=== PATIENT | male | born 1970 | race Caucasian/White ===

== ENCOUNTER → 2019-04-22 | Emergency (ER) | payer MEDICAID ==
[~2019-04-22] VITALS: Ht 172.7 cm; Wt 83.9 kg
[~2019-04-22] MED LIST: PHENAZOPYRIDINE HCL 200 MG TABLET ONE; PHENAZOPYRIDINE HCL 200 MG TABLET PO ONE
--- NOTE | 2019-04-22 22:15 | NUR ---
PT PRESENTED TO THE ER WITH A C/O PAIN WITH URINATION. PT STATED THAT HE WAS SEEN AT [facility] AND DX WITH KIDNEY STONES. PT WENT TO THE UROLOGIST YESTERDAY AND WAS GIVEN FLOMAX. PT IS STILL C/O PAIN.
--- NOTE | 2019-04-22 22:30 | NUR ---
DR GARCIA IS AT THE BEDSIDE.
[2019-04-22 22:57] LABS: APPEARANCE,URINE Clear (CLEAR); BILIRUBIN,URINE SMALL (NEGATIVE); BLOOD, URINE Large Ery/uL (NEGATIVE); COLOR,URINE Dark (YELLOW); KETONES,URINE 80 (NEGATIVE); LEUKOCYTE ESTERASE ,URINE Negative (NEGATIVE); NITRITE, URINE Negative (NEGATIVE); PROTEIN,URINE 100 mg/dl (NEGATIVE); UGLUCOSE Negative (NEGATIVE); UROBILINOGEN,URINE 0.2 EU/dL (0.2)
[2019-04-22 23:50] LABS: RBC,URINE 51-80 /HPF (0-2)
[2019-04-22 23:51] LABS: BACTERIA,URINE Few /HPF (None Seen); SQUAMOUS EPITHELIAL CELL,UR Rare /HPF (None Seen)
[2019-04-23 01:14] VITALS: BP 136/78
--- NOTE | 2019-04-23 01:15 | NUR ---
Patient discharged to home in stable condition. Written and verbal after care instructions given. Patient verbalizes understanding of instruction AND RX. PT AMBULATED OUT WITH A STEADY GAIT. VSS.
== END | disposition home or self-care (01) ==
LOC: ER 22:08
DX: R30.0 Dysuria (principal); F17.200 Nicotine dependence, unspecified, uncomplicated; Z87.442 Personal history of urinary calculi; Z88.0 Allergy status to penicillin; Z60.2 Problems related to living alone
CPT/HCPCS: 81000-TC; 87086-TC

== ENCOUNTER 2019-10-21 01:06 | Emergency (ER) | payer SELFPAY ==
[~2019-10-21] VITALS: Ht 170.2 cm; Wt 83.9 kg
[2019-10-21 01:30] LABS: APPEARANCE,URINE Clear (CLEAR); BILIRUBIN,URINE Negative (NEGATIVE); BLOOD, URINE Trace-intact Ery/uL (NEGATIVE); COLOR,URINE Yellow (YELLOW); KETONES,URINE Negative (NEGATIVE); LEUKOCYTE ESTERASE ,URINE Negative (NEGATIVE); NITRITE, URINE Negative (NEGATIVE); PH,URINE 6.5 (5.0-8.0); PROTEIN,URINE Negative (NEGATIVE); UGLUCOSE Negative (NEGATIVE); UROBILINOGEN,URINE 0.2 EU/dL (0.2)
--- NOTE | 2019-10-21 01:30 | NUR ---
C/C URGE TO URINATE AFTER URINATION, -DYSURIA, -BURNING. HX OF STONES AND RECENT INTERCOURSE. TO ER BED 2, URINE SENT TO LAB.
[2019-10-21 01:39] VITALS: BP 151/92
[2019-10-21 02:10] LABS: BACTERIA,URINE None seen /HPF (None Seen); RBC,URINE 0-2 /HPF (0-2); SQUAMOUS EPITHELIAL CELL,UR Few /HPF (None Seen); WBC,URINE 0-2 /HPF (0-3)
== END 2019-10-21 02:27 | disposition home or self-care (01) ==
LOC: ER 01:07
DX: R30.0 Dysuria (principal); F17.200 Nicotine dependence, unspecified, uncomplicated; Z87.440 Personal history of urinary (tract) infections; Z87.442 Personal history of urinary calculi; Z88.0 Allergy status to penicillin; Z60.2 Problems related to living alone
CPT/HCPCS: 81000-TC

== ENCOUNTER 2020-05-01 13:54 | Emergency (ER) | payer SELFPAY ==
[~2020-05-01] VITALS: Ht 172.7 cm; Wt 83.9 kg
[2020-05-01] MEDS ORDERED: IV NS 0.9% 1,000 ML BAG IV ONE (14:30)
[2020-05-01 14:42] LABS: HEMATOCRIT 53 % (39-51)
[2020-05-01 14:44] LABS: BASOPHILS % (AUTO) 0.5 % (0.0-2.0); EOSINOPHILS % (AUTO) 0.9 % (0.0-6.0); HEMOGLOBIN 18.4 g/dL (13.5-17.5); LYMPHOCYTES # (AUTO) 3.1 /CMM (0.8-4.8); MEAN CORPUSCULAR HGB CONC 35 g/dl (31.0-36.0); MEAN CORPUSCULAR VOLUME 93 fL (80-96); MONOCYTES # (AUTO) 0.6 /CMM (0.1-1.30); MONOCYTES % (AUTO) 7.1 % (2.0-12.0); NEUTROPHILS % (AUTO) 51.5 % (43.0-81.0); PLATELET COUNT (AUTO) 304 /CMM (150-450); RED BLOOD CELL COUNT(AUTO) 5.74 MIL/uL (4.5-6.0); WHITE BLOOD COUNT (AUTO) 7.8 K/uL (4.3-11.0)
[2020-05-01 14:48] LABS: CALCIUM, SERUM 9.2 mg/dL (8.5-10.1); CREATININE 1.2 mg/dL (0.6-1.3); POTASSIUM 3.5 mmol/L (3.5-5.1)
[2020-05-01 14:54] LABS: ALBUMIN 3.8 g/dL (3.4-5.0); BILIRUBIN,DIRECT 0.1 mg/dL (0.0-0.2); BILIRUBIN,TOTAL 0.6 mg/dL (0.2-1.0); TOTAL PROTEIN, SERUM 7.7 g/dL (6.4-8.2)
--- NOTE | 2020-05-01 15:47 | NUR ---
Await MD re-assessment and disposition. No acute changes. NO obvious distress. Status quo
[2020-05-01 15:53] LABS: THYROID STIMULATING HORMONE 1.02 uIU/mL (0.358-3.74)
[2020-05-01 15:55] VITALS: BP 132/88
--- NOTE | 2020-05-01 16:15 | NUR ---
IV removed. Catheter intact and site benign. Pressure and 4x4 applied to site. No bleeding noted.Patient discharged to home in stable condition. Written and verbal after care instructions given. Patient verbalizes understanding of instruction.
== END 2020-05-01 16:17 | disposition home or self-care (01) ==
LOC: ER 13:59
DX: F41.1 Generalized anxiety disorder (principal); R53.83 Other fatigue; R19.7 Diarrhea, unspecified; R51 Headache; R11.0 Nausea; Z87.442 Personal history of urinary calculi; Z88.0 Allergy status to penicillin; Z60.2 Problems related to living alone
CPT/HCPCS: 36415; 71045; 80048; 80076; 84439; 84443; 85025; 93005; 96360; 99285; J7030

== ENCOUNTER 2020-07-11 17:05 | Emergency (ER) | payer SELFPAY ==
[~2020-07-11] VITALS: Ht 167.6 cm; Wt 86.2 kg
[2020-07-11 17:27] VITALS: BP 142/93
--- NOTE | 2020-07-11 18:10 | NUR ---
Patient discharged to home in stable condition. Written and verbal after care instructions given. Patient verbalizes understanding of instruction. Pt ambulatory with a steady gait
== END 2020-07-11 18:12 | disposition home or self-care (01) ==
LOC: ER 17:06
DX: K08.89 Other specified disorders of teeth and supporting structures (principal); F12.90 Cannabis use, unspecified, uncomplicated; Z87.442 Personal history of urinary calculi; Z88.0 Allergy status to penicillin; Z60.2 Problems related to living alone

== ENCOUNTER 2025-06-26 22:24 | Emergency (ER) | payer OTHER ==
[~2025-06-26] VITALS: Ht 170.2 cm; Wt 90.7 kg
[2025-06-27 00:08] VITALS: BP 146/93; TEMP 98.2; O2SAT 100
== END 2025-06-27 01:39 | disposition home or self-care (01) ==
LOC: ER 22:29
DX: J02.8 Acute pharyngitis due to other specified organisms (principal); B97.89 Other viral agents as the cause of diseases classified elsewhere; F17.200 Nicotine dependence, unspecified, uncomplicated; Z87.442 Personal history of urinary calculi; Z88.0 Allergy status to penicillin; Z60.2 Problems related to living alone; Z20.822 Contact with and (suspected) exposure to COVID-19
CPT/HCPCS: 86403-TC; 87070-TC